=== PATIENT | male | born 1945 | race Caucasian/White ===

== ENCOUNTER → 2017-01-04 | Outpatient (CLI) | payer MEDICARE | END | disposition home or self-care (01) | LOC: PCVCIMAG 14:15 | PROVIDERS: ATTEND Internal Medicine Cardiovascular Disease | DX: I25.10 Atherosclerotic heart disease of native coronary artery without angina pectoris (principal); I10 Essential (primary) hypertension; E78.5 Hyperlipidemia, unspecified; K21.9 Gastro-esophageal reflux disease without esophagitis | CPT/HCPCS: 93005; 93306; G0463 ==

== ENCOUNTER → 2017-06-06 | Outpatient (CLI) | payer MEDICARE ==
--- NOTE | 2017-06-07 18:20 | PCVCIMAG ---
APPROVED REPORT Exam: Stress Echocardiogram Indication: CAD, HLP, HTN Patient Location: Echo lab Stress Nurse: Rhona Johnson RN Ht: 5 ft 6 in HR: 81 bpm BP: 128/70 mmHg Rhythm: NSR Procedure The patient underwent an Exercise Stress Test using the Omar Protocol. Blood pressure, heart rate, and EKG were monitored. An Echocardiogram was performed by sterile processing technician in four stages in quad fashion. At peak stress, four selected images were obtained and placed side by side with resting images for comparison. Stress Test Details Stress Test: Exercise stress testing was performed using a Omar protocol. HR Resting HR: 81 bpmMax Heart Rate (APMHR): 150 bpm Max HR Achieved: 157 bpmTarget HR (85% APMHR): 127 bpm % of APMHR: 104 HR response to stress: Normal HR response to stress BP Resting BP: 128/70 mmHg Max BP: 170/80 mmHg ECG Resting ECG: Sinus Rhythm Stress ECG: Sinus Rhythm Recovery ECG: Sinus Rhythm Clinical Reason for Termination: Maximal effort Exercise duration: 6 min sec Highest Stage Achieved: Stage 3: 3.4 mph at 14% grade. Exercise capacity: 7.00 METs Overall Exercise Capacity for Age: Normal Pre-Stress Echo The resting Echocardiogram showed normal left ventricular contractility with an estimated Ejection Fraction of about 55-60%. Normal wall motion in all segments on baseline images. Post-Stress Echo The stress Echocardiogram showed normal left ventricular contractility with an estimated Ejection Fraction of about 60-65%. Normal augmentation of wall motion in all segments on post stress images. Conclusion Clinical Response: Non-ischemic Exercise Capacity: Average Stress ECG Response: Non-ischemic Stress Echo Images: Non-ischemic Other Information Study Quality: Good
== END | disposition home or self-care (01) ==
LOC: PCVCIMAG 10:26
PROVIDERS: ATTEND Internal Medicine Cardiovascular Disease
DX: I25.10 Atherosclerotic heart disease of native coronary artery without angina pectoris (principal); I10 Essential (primary) hypertension; E78.5 Hyperlipidemia, unspecified
CPT/HCPCS: 93325; 93351

== ENCOUNTER → 2017-06-21 | Outpatient (CLI) | payer MEDICARE ==
--- NOTE | 2017-06-21 10:26 | PCVCIMAG ---
APPROVED REPORT Patient Location: Out-Patient Indications CVA/TIA: Motor Deficit, Doppler Spectral Velocity Analysis PSV / EDVPSV / EDV ECA (R) 107 / 11 cm/sECA (L) 83 / 9 cm/s dICA (R) 70 / 16 cm/sdICA (L) 78 / 21 cm/s Marcela (R) 101 / 20 cm/smICA (L) 85 / 19 cm/s pICA (R) 78 / 18 cm/spICA (L) 75 / 16 cm/s Bulb (R) 103 / 16 cm/sBulb (L) 126 / 16 cm/s dCCA (R) 101 / 16 cm/sdCCA (L) 114 / 17 cm/s mCCA (R) 91 / 13 cm/smCCA (L) 126 / 20 cm/s Vert (R) 80 / 11 cm/sVert (L) 61 / 15 cm/s ICA/CCA ICA/CCA Findings The right carotid bulb has mild calcified plaque. The right proximal internal carotid artery shows no significant stenosis. The right common carotid artery shows no significant stenosis. The right external carotid artery shows no significant stenosis. The left carotid bulb has mild calcified plaque. The left proximal internal carotid artery shows no significant stenosis. The left common carotid artery shows no significant stenosis. The left external carotid artery shows no significant stenosis. Conclusion 1. Mild calcific plaquing involving both internal carotid arteries without significant stenosis 2. Antegrade vertebral flow
--- NOTE | 2017-06-21 10:53 | PCVCIMAG ---
EXAM: BILATERAL RENAL ULTRASOUND AND BILATERAL RENAL DUPLEX INDICATION: Hypertension FINDINGS: Right kidney: Length measures 11.4 cm. No hydronephrosis or extensive renal scarring. Right renal duplex: Adequate technical quality. No sonographic evidence of renal artery stenosis. The aortic to renal artery ratio is 1.2. The renal vein is patent. Left kidney: Length measures 11.5 cm. No hydronephrosis or extensive renal scarring. Left renal duplex: Adequate technical quality. No sonographic evidence of renal artery stenosis. The aortic to renal artery ratio is 1.6. The renal vein is patent. Bladder: Prominent prostatic hypertrophy seen at the bladder base. Correlation with PSA measurements may be of value. IMPRESSION: No significant renal artery stenosis. No hydronephrosis bilaterally. Prostatic hypertrophy. LOC:[id number]
== END | disposition home or self-care (01) ==
LOC: PCVCIMAG 08:23
PROVIDERS: ATTEND Internal Medicine Cardiovascular Disease
DX: I65.23 Occlusion and stenosis of bilateral carotid arteries (principal); I25.10 Atherosclerotic heart disease of native coronary artery without angina pectoris; I10 Essential (primary) hypertension; E78.5 Hyperlipidemia, unspecified; K21.9 Gastro-esophageal reflux disease without esophagitis; N40.0 Benign prostatic hyperplasia without lower urinary tract symptoms; F17.200 Nicotine dependence, unspecified, uncomplicated; Z95.5 Presence of coronary angioplasty implant and graft; Z86.73 Personal history of transient ischemic attack (TIA), and cerebral infarction without residual deficits; Z79.82 Long term (current) use of aspirin
CPT/HCPCS: 76770; 80061; 93005; 93880; 93975; G0463

== ENCOUNTER → 2017-11-22 | Outpatient (CLI) | payer MEDICARE | END | disposition home or self-care (01) | LOC: PCVCIMAG 10:45 | DX: I25.10 Atherosclerotic heart disease of native coronary artery without angina pectoris (principal); E78.5 Hyperlipidemia, unspecified; I10 Essential (primary) hypertension; F17.200 Nicotine dependence, unspecified, uncomplicated; Z95.5 Presence of coronary angioplasty implant and graft | CPT/HCPCS: 93325; 93351 ==

== ENCOUNTER → 2018-05-30 | Outpatient (CLI) | payer MEDICARE | END | disposition home or self-care (01) | LOC: PCVCCLINIC 10:33 | PROVIDERS: ATTEND Internal Medicine Cardiovascular Disease | DX: I25.10 Atherosclerotic heart disease of native coronary artery without angina pectoris (principal); E78.00 Pure hypercholesterolemia, unspecified; I10 Essential (primary) hypertension; I77.9 Disorder of arteries and arterioles, unspecified; I63.9 Cerebral infarction, unspecified; Z72.0 Tobacco use; Z79.899 Other long term (current) drug therapy; Z79.82 Long term (current) use of aspirin | CPT/HCPCS: 80061; 93005; G0463 ==

== ENCOUNTER → 2019-01-23 | Outpatient (CLI) | payer MEDICARE ==
--- NOTE | 2019-01-23 11:52 | PCVCIMAG ---
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 Blood pressure, heart rate, and EKG were monitored. An Echocardiogram was performed by automotive refinish technician in four stages in quad fashion. At peak stress, four selected images were obtained and placed side by side with resting images for comparison. Stress Test Details Stress Test: Exercise stress was performed using a manual protocol. HR Resting HR: 84 bpmMax Heart Rate (APMHR): 148 bpm Max HR Achieved: 131 bpmTarget HR (85% APMHR): 125 bpm % of APMHR: 88 Recovery HR: 93 bpm HR response to stress: Normal HR response to stress BP Resting BP: 134/70 mmHg Max BP: 180/78 mmHg Recovery BP: 130/78 mmHg BP response to stress: Normal blood pressure response to stress. ECG Resting ECG: Sinus Rhythm, od inferior damage Stress ECG: Sinus Rhythm, od inferior damage ST Change: Non-ischemic Arrhythmia: Rare PVC Recovery ECG: Sinus Rhythm, od inferior damage Recovery ST Change: Non-ischemic Recovery Arrhythmia: None Clinical Reason for Termination: Maximal effort Stress Symptoms: fatigue,dyspnea Exercise duration: 7 min 03 sec Highest Stage Achieved: Stage 1: 1.7 mph at 10% grade.,12%, 14% Exercise capacity: 5.5 METs Overall Exercise Capacity for Age: Poor Scale: Sedentary Angina Score: None No complications. Stress ECG Conclusion The patient exercised according a Manual protocol for 7:03 mins; achieving a work level of 5.5 METS. The resting heart rate of 69 bpm chandler to a maximum heart rate of 131 bpm. This value represent 88% of the maximal, age-predicted heart rate. The resting blood pressure of 134/70mmHg, chandler to a maximum blood pressure of 180/78 mmHg. The exercise test was stopped due to fatigue . Pre-Stress Echo The resting Echocardiogram showed normal left ventricular contractility with an estimated Ejection Fraction of about 50-55%. The resting Echocardiogram demonstrated wall motion abnormality in the basal inferior wall consistent with known old damage . Post-Stress Echo The stress Echocardiogram showed normal left ventricular contractility with an estimated Ejection Fraction of about 60-65%. A fixed defect in the basal inferior wall is seen consistent with old daamage Conclusion Clinical Response: Non-ischemic Exercise Capacity: Below Average Stress ECG Response: Non-ischemic Stress Echo Images: Non-ischemic No clinical, EKG or echocardiographic evidence for ischemia. No echocardiographic evidence for exercise induced ischemia. Normal stress echocardiogram with maximal exercise stress. <Conclusion> No clinical, EKG or echocardiographic evidence for ischemia. No echocardiographic evidence for exercise induced ischemia. Normal stress echocardiogram with maximal exercise stress.
== END | disposition home or self-care (01) ==
LOC: PCVCIMAG 10:13
PROVIDERS: ATTEND Internal Medicine Cardiovascular Disease
DX: I25.10 Atherosclerotic heart disease of native coronary artery without angina pectoris (principal); I10 Essential (primary) hypertension; Z95.5 Presence of coronary angioplasty implant and graft
CPT/HCPCS: 93325; 93351

== ENCOUNTER → 2019-09-06 | Outpatient (CLI) | payer MEDICARE | END | disposition home or self-care (01) | LOC: PCVCCLINIC 14:42 | PROVIDERS: ATTEND Internal Medicine Cardiovascular Disease | DX: I25.10 Atherosclerotic heart disease of native coronary artery without angina pectoris (principal); E78.00 Pure hypercholesterolemia, unspecified; I10 Essential (primary) hypertension; I65.23 Occlusion and stenosis of bilateral carotid arteries; Z86.73 Personal history of transient ischemic attack (TIA), and cerebral infarction without residual deficits | CPT/HCPCS: 36415; 80061 ==